=== PATIENT | male | born 1970 | race Caucasian/White ===

== ENCOUNTER 2019-08-12 13:58 | Outpatient (CLI) | payer BC ==
--- NOTE | 2019-08-12 14:58 | RAD ---
PA AND LATERAL VIEWS OF THE CHEST: 08/12/19 HISTORY: Shortness of breath. FINDINGS: The heart size is borderline. The lungs are expanded without focal areas of consolidation, pneumothor aces, or pleural effusions. IMPRESSION: No acute process. POS: STEPHANI
[2019-08-12 16:17] LABS: #Basophils 0.1 thou/uL (0.0-0.2); #Eosinphils 0.1 thou/uL (0.0-0.7); #Lymphocytes 2.5 thou/uL (1.20-3.40); #Neutrophils 7.5 thou/uL (1.40-6.50); %Basophils 1.1 % (0.0-1.0); %Eosinophils 1.2 % (0.0-10.0); %Lymphocytes 22.2 % (21.0-51.0); %Monocytes 9.1 % (0.0-10.0); %Neutrophils 66.4 % (42.0-75.0); Mean Corpuscular HGB CONC 32.5 g/dL (32.0-36.0); Mean Corpuscular Hemoglobin 32.3 pg (27.0-31.0); Mean Corpuscular Volume 99.4 fL (78.0-98.0); Mean Platelet Volume 7.2 fL (7.4-10.4); Platelet Count 368 thou/uL (130-400); RBC Distribution Width 12.3 % (11.5-14.5); Red Blood Cell (RBC) Count 5.27 mill/uL (4.70-6.10); White Blood Cell (WBC) Count 11.3 thou/uL (4.8-10.8)
[2019-08-12 16:20] LABS: Hemoglobin A1c 5.1 % (4.0-6.0)
[2019-08-12 16:25] LABS: ALT (SGPT) 72 U/L (8-55); AST (SGOT) 54 U/L (5-34); Albumin 4.5 g/dL (3.5-5.0); Alkaline Phosphatase 66 U/L (40-110); Anion Gap 13 mmol/L (10-20); BUN (Urea Nitrogen) 12 mg/dL (8.9-20.6); Bilirubin, Total 0.5 mg/dL (0.2-1.2); Calc. Creatinine Clearance 0 mL/min (70-130); Calcium 9.5 mg/dL (7.8-10.44); Carbon Dioxide 27 mmol/L (22-29); Chloride 103 mmol/L (98-107); Estimated GFR-MDRD 58; Globulin 3.3 g/dL (2.4-3.5); Glucose 96 mg/dL (70-105); Potassium 4.3 mmol/L (3.5-5.1); Protein, Total 7.8 g/dL (6.0-8.3); Sodium 139 mmol/L (136-145)
[2019-08-12 16:28] LABS: Bacteria/HPF None Seen HPF (None Seen); Bilirubin Negative (Negative); Blood, Urine Negative (Negative); Clarity Extra Turbid (Clear); Glucose, Urine (Dipstick) Normal (Negative); Leukocyte 500 Leu/uL (Negative); Mucous/LPF 2+ LPF (<2+); Nitrite Negative (Negative); Protein, Urine (Dipstick) 20 mg/dL (Neg-Trace); Squamous Epithelial 0-3 HPF (0-3); Urobilinogen Normal mg/dL (Less than 2)
[2019-08-12 16:44] LABS: Free T4 (Free Thyroxine) 0.83 ng/dL (0.70-1.48); Thyroid Stimulating Hormone 0.8344 uIU/mL (0.35-4.94)
[2019-08-13 20:36] LABS: SARS-CoV-2 IgG Ab Non-Reactive (NonReactive); SARS-CoV-2 IgG Index 0.99 S/CO (< 1.40)
== END 2019-08-12 13:59 | disposition home or self-care (01) ==
LOC: SCSRAD 13:58
PROVIDERS: ATTEND Family Medicine
DX: Z01.84 Encounter for antibody response examination (principal); R06.02 Shortness of breath; R06.83 Snoring; Z87.09 Personal history of other diseases of the respiratory system
CPT/HCPCS: 36415; 71046; 80053; 80178; 81003; 81015; 83036; 84439; 84443; 85025; 86769

== ENCOUNTER 2020-02-10 11:23 | Outpatient (CLI) | payer BC ==
--- NOTE | 2020-02-10 12:25 | CT ---
CTA CHEST WITH CONTRAST: Multiple axial tomograms obtained through the chest following angio protocol with multiplanar reconst ruction and 3D post processing. INDICATION: Shortness of breath. Assess for pulmonary embolus. FINDINGS: Pulmonary arteries are adequately opacified. There is no evidence of pulmonary embolus identified. The lungs appear clear. No infiltrate. Mild stranding and atelectasis in the left lung base. Also mild streaky atelectasis in the left upper lobe in the region of the lingula. Mediastinum unremarkable. No adenopathy. Thoracic aorta unremarkable with no evidence of dissection or aneurysm. Images through the upper abdomen unremarkable. Osseous structures unremarkable. IMPRESSION: 1. No evidence of pulmonary embolus. 2. No evidence of acute lung process. POS: AGW
[2020-02-10] MEDS ORDERED: Iopamidol 370 76% 100 ML VIAL ONE (14:23)
== END 2020-02-10 11:24 | disposition home or self-care (01) ==
LOC: CT 11:23
PROVIDERS: ATTEND Family Medicine
DX: R06.02 Shortness of breath (principal)
CPT/HCPCS: 71275; Q9967

== ENCOUNTER 2021-08-07 21:09 | Inpatient (IN) | payer BC, SELFPAY ==
[2021-08-07 22:20] LABS: #Basophils 0.1 thou/uL (0.0-0.2); #Eosinphils 0.1 thou/uL (0.0-0.7); #Lymphocytes 2.8 thou/uL (1.20-3.40); #Monocytes 0.8 thou/uL (0.11-0.59); #Neutrophils 5.8 thou/uL (1.40-6.50); %Basophils 0.9 % (0.0-1.0); %Eosinophils 0.7 % (0.0-10.0); %Lymphocytes 29.3 % (21.0-51.0); %Monocytes 8.6 % (0.0-10.0); %Neutrophils 60.5 % (42.0-75.0); Hemoglobin 16.9 g/dL (14.0-18.0); Mean Corpuscular HGB CONC 32.7 g/dL (32.0-36.0); Mean Corpuscular Hemoglobin 32.2 pg (27.0-31.0); Mean Corpuscular Volume 98.7 fL (78.0-98.0); Platelet Count 360 thou/uL (130-400); RBC Distribution Width 11.7 % (11.5-14.5); Red Blood Cell (RBC) Count 5.25 mill/uL (4.70-6.10); White Blood Cell (WBC) Count 9.6 thou/uL (4.8-10.8)
[2021-08-07 22:39] LABS: ALT (SGPT) 65 U/L (8-55); AST (SGOT) 44 U/L (5-34); Albumin 4.3 g/dL (3.5-5.0); Alkaline Phosphatase 58 U/L (40-110); Anion Gap 15 mmol/L (10-20); BUN (Urea Nitrogen) 8 mg/dL (8.9-20.6); Bilirubin, Total 0.4 mg/dL (0.2-1.2); Calc. Creatinine Clearance 0 mL/min (70-130); Calcium 9.2 mg/dL (7.8-10.44); Carbon Dioxide 23 mmol/L (22-29); Chloride 107 mmol/L (98-107); Globulin 3.2 g/dL (2.4-3.5); Glucose 85 mg/dL (70-105); Potassium 3.9 mmol/L (3.5-5.1); Protein, Total 7.5 g/dL (6.0-8.3); Sodium 141 mmol/L (136-145)
[2021-08-07] MEDS ORDERED: HYDROcodone/Acetaminophen 5/325 mg Tablet PO PRN (23:17)
[2021-08-07] MEDS ORDERED: Acetaminophen 325 MG TAB PO PRN (23:17)
[2021-08-07] MEDS ORDERED: Ondansetron PF 4 MG/2 ML Vial IVP PRN (23:17)
[2021-08-07] MEDS ORDERED: NIFEdipine XL 30 MG TAB PO SCH (23:30)
[2021-08-08 02:04] LABS: Troponin I Less than 0.010 ng/mL (< 0.028)
[2021-08-08 04:24] LABS: #Basophils 0.1 thou/uL (0.0-0.2); #Eosinphils 0.2 thou/uL (0.0-0.7); #Lymphocytes 2.5 thou/uL (1.20-3.40); #Monocytes 0.7 thou/uL (0.11-0.59); #Neutrophils 4.8 thou/uL (1.40-6.50); %Basophils 1.3 % (0.0-1.0); %Lymphocytes 30.8 % (21.0-51.0); %Monocytes 8.1 % (0.0-10.0); %Neutrophils 57.9 % (42.0-75.0); Hemoglobin 16.8 g/dL (14.0-18.0); Mean Corpuscular HGB CONC 33.2 g/dL (32.0-36.0); Mean Corpuscular Hemoglobin 32.6 pg (27.0-31.0); Mean Corpuscular Volume 98.2 fL (78.0-98.0); Mean Platelet Volume 6.4 fL (7.4-10.4); Platelet Count 335 thou/uL (130-400); RBC Distribution Width 11.6 % (11.5-14.5); Red Blood Cell (RBC) Count 5.15 mill/uL (4.70-6.10); White Blood Cell (WBC) Count 8.3 thou/uL (4.8-10.8)
[2021-08-08 04:50] LABS: ALT (SGPT) 66 U/L (8-55); AST (SGOT) 51 U/L (5-34); Albumin 4.1 g/dL (3.5-5.0); Alkaline Phosphatase 55 U/L (40-110); Anion Gap 16 mmol/L (10-20); BUN (Urea Nitrogen) 8 mg/dL (8.9-20.6); Bilirubin, Total 0.7 mg/dL (0.2-1.2); Calc. Creatinine Clearance 0 mL/min (70-130); Calcium 8.8 mg/dL (7.8-10.44); Carbon Dioxide 22 mmol/L (22-29); Chloride 106 mmol/L (98-107); Globulin 3.3 g/dL (2.4-3.5); Glucose 83 mg/dL (70-105); Potassium 3.6 mmol/L (3.5-5.1); Protein, Total 7.4 g/dL (6.0-8.3); Sodium 140 mmol/L (136-145)
[2021-08-08 06:13] LABS: Troponin I Less than 0.010 ng/mL (< 0.028)
[2021-08-08 08:04] LABS: Troponin I Less than 0.010 ng/mL (< 0.028)
[2021-08-08] MEDS ORDERED: NIFEdipine XL 30 MG TAB PO SCH (09:00)
[2021-08-08] MEDS ORDERED: Famotidine 20 MG TAB ONE (09:53)
[2021-08-08] MEDS ORDERED: Enoxaparin Sodium 40 MG/0.4 ML SYRINGE ONE (09:54)
[2021-08-08] MEDS: Famotidine 20 MG TAB PO SCH ×2 (10:17→21:11)
[2021-08-08] MEDS: Enoxaparin Sodium 40 MG/0.4 ML SYRINGE SC SCH (10:17)
[2021-08-08] MEDS: Sodium Chloride 0.9% 1,000 ML IV SCH ×2 (13:51→13:52)
[2021-08-08 16:10] LABS: SARS-CoV-2 PCR by NAA Not Detected (NotDetected)
[2021-08-08 18:18] VITALS: BMI 30.8
[2021-08-08] MEDS: Zolpidem Tartrate 5 MG TAB PO PRN (21:11)
[2021-08-08 22:25] LABS: Bilirubin Negative (Negative); Blood, Urine Negative (Negative); Clarity Clear (Clear); Glucose, Urine (Dipstick) Normal (Negative); Ketone, Urine Negative (Negative); Leukocyte Negative Leu/uL (Negative); Nitrite Negative (Negative); Protein, Urine (Dipstick) 20 mg/dL (Neg-Trace); RBC/HPF 0-3 HPF (0-3); Specific Gravity, Urine 1.022 (1.002-1.036); Squamous Epithelial 0-3 HPF (0-3); Urobilinogen Normal mg/dL (Less than 2); WBC/HPF 0-3 HPF (0-3); pH, Urine 8.5 (5.0-9.0)
[2021-08-08 22:33] LABS: Bacteria/HPF 1+ HPF (None Seen)
[2021-08-08 22:37] LABS: Urine Culture Reflex Yes Yes
[2021-08-09] MEDS ORDERED: NIFEdipine XL 30 MG TAB PO SCH (00:01)
[2021-08-09] MEDS: Zolpidem Tartrate 5 MG TAB PO PRN (01:40)
[2021-08-09] MEDS ORDERED: Lorazepam 2 MG/ML VIAL SLOW IVP SCH ×2 (02:30→05:45)
[2021-08-09] MEDS: Sodium Chloride 0.9% 1,000 ML IV SCH (04:35)
[2021-08-09] MEDS ORDERED: Lorazepam 1 MG TAB PO PRN (05:38)
[2021-08-09] MEDS ORDERED: Thiamine HCl 200 MG/2 ML VIAL SLOW IVP SCH (06:00)
[2021-08-09] MEDS ORDERED: Lorazepam 2 MG/ML VIAL SLOW IVP PRN (06:30)
[2021-08-09] MEDS ORDERED: Folic Acid 1 MG TAB PO SCH (09:00)
[2021-08-09] MEDS ORDERED: Multivit, Therapeutic 1 TAB PO SCH (09:00)
[2021-08-09] MEDS ORDERED: NIFEdipine XL 60 MG TAB PO SCH (09:00)
[2021-08-09] MEDS: Enoxaparin Sodium 40 MG/0.4 ML SYRINGE SC SCH (09:46)
[2021-08-09] MEDS: Famotidine 20 MG TAB PO SCH (09:47)
[2021-08-09 17:43] VITALS: BP 133/89; TEMP 98.9
[2021-08-10] MEDS ORDERED: Lorazepam 1 MG TAB PO PRN (05:38)
[2021-08-11] MEDS ORDERED: Lorazepam 1 MG TAB PO PRN (05:38)
[2021-08-12] MEDS ORDERED: Lorazepam 0.5 MG TAB PO PRN (05:38)
[2021-08-12] MEDS ORDERED: Thiamine 100 MG TAB PO SCH (06:00)
== END 2021-08-09 17:50 | disposition home or self-care (01) | DRG 312 ==
LOC: ERS 21:09 → ERHOLD 23:04 → 2NO 08-08 15:32 → OBSVTOIN 08-09 16:59
PROVIDERS: ADMIT Emergency Medicine; ATTEND Emergency Medicine
DX: R55 Syncope and collapse (principal); Z20.822 Contact with and (suspected) exposure to COVID-19; E66.9 Obesity, unspecified; I10 Essential (primary) hypertension; J44.9 Chronic obstructive pulmonary disease, unspecified; K21.9 Gastro-esophageal reflux disease without esophagitis; J06.9 Acute upper respiratory infection, unspecified; Z68.30 Body mass index [BMI] 30.0-30.9, adult
CPT/HCPCS: 36415; 70450; 71275; 80053; 81001; 82140; 83880; 84484; 85025; 87086; 93005; 93306; 96372; 96374; 96375; 96376; G0378; J1650; J2060; J2405; J3411; J7050; U0003; U0005

== ENCOUNTER 2021-08-10 01:56 | Emergency (ER) | payer BC ==
[2021-08-10 02:12] LABS: #Basophils 0.1 thou/uL (0.0-0.2); #Eosinphils 0.2 thou/uL (0.0-0.7); #Lymphocytes 2.9 thou/uL (1.20-3.40); #Monocytes 0.7 thou/uL (0.11-0.59); %Basophils 0.9 % (0.0-1.0); %Eosinophils 1.7 % (0.0-10.0); %Monocytes 8.2 % (0.0-10.0); %Neutrophils 56.2 % (42.0-75.0); Hemoglobin 14.7 g/dL (14.0-18.0); Mean Corpuscular HGB CONC 33.4 g/dL (32.0-36.0); Mean Corpuscular Hemoglobin 33.7 pg (27.0-31.0); Mean Platelet Volume 6.7 fL (7.4-10.4); Platelet Count 196 thou/uL (130-400); RBC Distribution Width 11.5 % (11.5-14.5); Red Blood Cell (RBC) Count 4.37 mill/uL (4.70-6.10); White Blood Cell (WBC) Count 8.8 thou/uL (4.8-10.8)
[2021-08-10] MEDS ORDERED: Norepinephrine 8 MG/0.9% NS 250 ML ONE (02:21)
[2021-08-10 02:26] LABS: INR-International Normal Ratio 1.2; PTT 32.7 sec (22.9-36.1); Prothrombin Time 15.3 sec (12.0-14.7)
[2021-08-10 02:30] LABS: Acetaminophen Less than 10.0 mcg/mL (10.0-30.0); Alcohol 153 mg/dL (Less than 10); Salicylate Less than 8.0 mg/dL (15.0-30.0)
[2021-08-10 02:31] LABS: ALT (SGPT) 49 U/L (8-55); AST (SGOT) 41 U/L (5-34); Albumin 3.3 g/dL (3.5-5.0); Alkaline Phosphatase 50 U/L (40-110); Anion Gap 15 mmol/L (10-20); BUN (Urea Nitrogen) 9 mg/dL (8.9-20.6); Bilirubin, Total 0.4 mg/dL (0.2-1.2); Calc. Creatinine Clearance 0 mL/min (70-130); Calcium 7.8 mg/dL (7.8-10.44); Carbon Dioxide 17 mmol/L (22-29); Chloride 112 mmol/L (98-107); Globulin 2.6 g/dL (2.4-3.5); Glucose 188 mg/dL (70-105); Potassium 3.7 mmol/L (3.5-5.1); Protein, Total 5.9 g/dL (6.0-8.3); Sodium 140 mmol/L (136-145)
[2021-08-10] MEDS ORDERED: Tranexamic Acid 1,000 MG/10 ML VIAL ONE (02:33)
[2021-08-10 03:17] LABS: Analyzer IN Cardio ER; CO2 Tension 40.1 mmHg (35.0-45.0); Calcium, Ionized (arterial) 1.17 mmol/L (1.12-1.30); Carboxyhemoglobin (COHb) 0.2 gm% (0.0-3.0); Hemoglobin (Hb) 10.2 g/dL (14.0-18.0); Potassium - ABG Lab 3.69 mmol/L (3.70-5.30); pH, Arterial 7.29 (7.35-7.45)
[2021-08-10 03:19] LABS: O2 Tension (PaO2), arterial 59.1 mmHg (80.0-100.0)
[2021-08-10 03:20] LABS: ALV-art Gradient 603.775 mmHg (0-20); Puncture Site LFA
[2021-08-10 03:22] LABS: Actual Bicarbonate (HCO3v) 21 mEq/L (22-28); Analyzer IN Cardio ER; Base Excess -7.7 mEq/L (-2.0 to +3.0); Calcium, Ionized (venous) 1.09 mmol/L (1.16-1.32); Chloride (VBG) 108 mmol/L (98-106); Hemoglobin (Hb) 10.5 g/dL (13.1-17.2); Potassium (VBG) 2.79 mmol/L (3.70-5.30); Sodium 139.7 mmol/L (133-146); pH (venous) 7.19 (7.32-7.43)
[2021-08-10] MEDS ORDERED: Atropine Sulfate 1 mg/10 ml Syringe ONE (05:49)
[2021-08-10] MEDS ORDERED: Sodium Bicarb 50 MEQ/50 ML Abboject 8.4% SYRINGE ONE (05:49)
[2021-08-10] MEDS ORDERED: Calcium Chloride 1 GM/10 ML Abboject SYRINGE ONE (05:49)
[2021-08-10] MEDS ORDERED: EPINEPHrine 1 MG/10 ML Abboject SYRINGE ONE (05:49)
== END 2021-08-10 02:53 | disposition expired ==
LOC: ERS 01:56 → EEVIPCON 01:56 → ERS 02:53
DX: S06.899A Other specified intracranial injury with loss of consciousness of unspecified duration, initial encounter (principal); W34.00XA Accidental discharge from unspecified firearms or gun, initial encounter
CPT/HCPCS: 31500; 36415; 36430; 71045; 80053; 80307; 82805; 83605; 85025; 85610; 85730; 86850; 86900; 86901; 96374; 96375; G0390; J0171; J0461; P9016